=== PATIENT | male | born 1960 | race Asian ===

== ENCOUNTER 2023-02-05 19:44 | Inpatient (IN) | payer OTHER ==
[2023-02-05 21:12] LABS: BASO % 0.2 % (0-2.0); EOS % 0.1 % (0-4.5); HEMOGLOBIN 15.7 GM/dL (11.7-16.9); LYMPH % 9.2 % (8-40); MCHC 33.5 g/dl (32.0-35.9); MEAN CELL VOLUME 89.6 fl (80-96); MEAN PLT VOLUME 7.2 fl (7.5-11.1); MONO % 8.4 % (3.8-10.2); NEUT % 82.1 % (42.8-82.8); PLATELET COUNT 233 10^3/uL (134-434); RBC 5.24 M/mm3 (4.00-5.60); RDW 13.2 % (11.9-15.9)
[2023-02-05 21:22] LABS: INR 1.07 (0.83-1.09); PROTHROMBIN TIME (PATIENT) 12.4 SEC (9.7-13.0)
[2023-02-05 21:24] LABS: ACTIVATED PTT 26.7 SECONDS (25.2-36.5)
[2023-02-05 21:41] LABS: POTASSIUM 4.5 mmol/L (3.5-5.1)
[2023-02-05 21:43] LABS: CALCIUM 8.7 mg/dL (8.5-10.1)
[2023-02-05 21:44] LABS: ALBUMIN 3.3 g/dl (3.4-5.0); BLOOD UREA NITROGEN 33.3 mg/dL (7-18)
[2023-02-05 21:47] LABS: CREATININE 1.7 mg/dL (0.55-1.3)
[2023-02-05 21:48] LABS: BILIRUBIN,TOTAL 1.4 mg/dL (0.2-1)
[2023-02-05 21:49] LABS: TOT PROT 6.6 g/dl (6.4-8.2)
[2023-02-05 23:17] LABS: ERYTHROCYTE SEDIMENTATION RATE 7 mm/hr (0-20)
[2023-02-06 03:06] LABS: EPI CELLS 10 /uL (0-25.1); HYALINE CASTS 128 /uL (0-3.1); URINE APPEARANCE CLOUDY; URINE BACTERIA 15 /uL (0-1359); URINE BILIRUBIN 1+ (NEGATIVE); URINE COLOR DK YELLOW; URINE GLUCOSE (UA) NEGATIVE (NEGATIVE); URINE KETONE TRACE (NEGATIVE); URINE LEUK ESTERASE 2+ (NEGATIVE); URINE NITRITE NEGATIVE (NEGATIVE); URINE PROTEIN TRACE (NEGATIVE); URINE WBC 824 /uL (0-25.8)
[2023-02-06 07:24] LABS: BASO % 0.3 % (0-2.0); EOS % 0.7 % (0-4.5); HEMATOCRIT 42.8 % (35.4-49); HEMOGLOBIN 14.9 GM/dL (11.7-16.9); LYMPH % 16.4 % (8-40); MCH 31.1 pg (25.7-33.7); MCHC 34.7 g/dl (32.0-35.9); MEAN CELL VOLUME 89.7 fl (80-96); MEAN PLT VOLUME 7.7 fl (7.5-11.1); MONO % 9.8 % (3.8-10.2); NEUT % 72.8 % (42.8-82.8); PLATELET COUNT 247 10^3/uL (134-434); RBC 4.78 M/mm3 (4.00-5.60); RDW 13.1 % (11.9-15.9); WHITE BLOOD COUNT 10.6 K/mm3 (4.0-10.0)
[2023-02-06 07:44] LABS: POTASSIUM 4.3 mmol/L (3.5-5.1)
[2023-02-06 07:49] LABS: CALCIUM 8.5 mg/dL (8.5-10.1)
[2023-02-06 07:50] LABS: ALBUMIN 3.2 g/dl (3.4-5.0); BLOOD UREA NITROGEN 37.6 mg/dL (7-18); MAGNESIUM 2.3 mg/dL (1.8-2.4)
[2023-02-06 07:53] LABS: CREATININE 1.2 mg/dL (0.55-1.3); PHOSPHOROUS 4.2 mg/dL (2.5-4.9)
[2023-02-06 07:55] LABS: BILIRUBIN,TOTAL 1.5 mg/dL (0.2-1); TOT PROT 6.3 g/dl (6.4-8.2)
[2023-02-06 08:57] LABS: HIV INTERPRETATION NEGATIVE (NEGATIVE)
[2023-02-06 09:17] LABS: RETICULOCYTES 1.13 % (0.5-1.5)
[2023-02-06] MEDS: ASPIRIN COATED 81 MG TABLET.EC PO SCH (10:56)
[2023-02-06] MEDS: ENOXAPARIN NA (PORCINE) 40 MG/0.4 ML DISP.SYRIN SQ SCH (10:57)
[2023-02-06] MEDS: CARVEDILOL 12.5 MG TABLET (FP) PO SCH ×2 (10:57→21:37)
[2023-02-06 11:22] VITALS: BMI 26.4
[2023-02-06] MEDS: predniSONE 20 MG TABLET (UD) PO SCH (14:59)
[2023-02-06] MEDS ORDERED: ACETAMINOPHEN 1000 MG/100 ML BAG IVPB ONE (20:00)
[2023-02-07 08:38] LABS: HEMOGLOBIN 14.5 GM/dL (11.7-16.9); MCH 30.8 pg (25.7-33.7); MCHC 34.6 g/dl (32.0-35.9); MEAN CELL VOLUME 89.1 fl (80-96); RBC 4.71 M/mm3 (4.00-5.60)
[2023-02-07 08:41] LABS: POTASSIUM 4.8 mmol/L (3.5-5.1)
[2023-02-07 08:43] LABS: ALBUMIN 3.2 g/dl (3.4-5.0); BLOOD UREA NITROGEN 33.5 mg/dL (7-18); CALCIUM 8.5 mg/dL (8.5-10.1)
[2023-02-07 08:47] LABS: MAGNESIUM 2.6 mg/dL (1.8-2.4); PHOSPHOROUS 3.7 mg/dL (2.5-4.9)
[2023-02-07 08:48] LABS: BILIRUBIN,TOTAL 1.3 mg/dL (0.2-1)
[2023-02-07 08:49] LABS: PLATELET COUNT 244 10^3/uL (134-434)
[2023-02-07 08:57] LABS: TOT PROT 6.8 g/dl (6.4-8.2)
[2023-02-07] MEDS: CARVEDILOL 12.5 MG TABLET (FP) PO SCH ×2 (10:12→23:02)
[2023-02-07] MEDS: predniSONE 20 MG TABLET (UD) PO SCH (10:13)
[2023-02-07] MEDS: ENOXAPARIN NA (PORCINE) 40 MG/0.4 ML DISP.SYRIN SQ SCH (10:13)
[2023-02-07] MEDS: ASPIRIN COATED 81 MG TABLET.EC PO SCH (10:13)
[2023-02-07] MEDS ORDERED: SODIUM CHLORIDE 1,000 ML IV SCH (14:15)
[2023-02-07] MEDS: methylPREDNISolone NA SUCC 40 MG/1 ML VIAL IVPUSH SCH (15:09)
[2023-02-08 09:32] LABS: HEMATOCRIT 41.1 % (35.4-49); HEMOGLOBIN 14.1 GM/dL (11.7-16.9); MCH 30.7 pg (25.7-33.7); MCHC 34.3 g/dl (32.0-35.9); MEAN CELL VOLUME 89.3 fl (80-96); MEAN PLT VOLUME 8.2 fl (7.5-11.1); PLATELET COUNT 255 10^3/uL (134-434); WHITE BLOOD COUNT 9.6 K/mm3 (4.0-10.0)
[2023-02-08] MEDS: PIPERACILLIN/TAZOB 3.375 GM 3.375 GM in DEXTROSE 5%-WATER - 50 ML IVPB SCH ×2 (10:46→17:54)
[2023-02-08] MEDS: methylPREDNISolone NA SUCC 40 MG/1 ML VIAL IVPUSH SCH (10:47)
[2023-02-08] MEDS: CARVEDILOL 12.5 MG TABLET (FP) PO SCH ×2 (10:47→21:53)
[2023-02-08] MEDS: ENOXAPARIN NA (PORCINE) 40 MG/0.4 ML DISP.SYRIN SQ SCH (10:47)
[2023-02-08 11:42] LABS: POTASSIUM 4.9 mmol/L (3.5-5.1)
[2023-02-08 12:08] LABS: ALBUMIN 3.1 g/dl (3.4-5.0)
[2023-02-08 12:09] LABS: CALCIUM 8.6 mg/dL (8.5-10.1)
[2023-02-08 12:10] LABS: MAGNESIUM 2.7 mg/dL (1.8-2.4)
[2023-02-08 12:13] LABS: CREATININE 1.2 mg/dL (0.55-1.3)
[2023-02-08 12:14] LABS: TOT PROT 6.6 g/dl (6.4-8.2)
[2023-02-08 12:15] LABS: PHOSPHOROUS 3.6 mg/dL (2.5-4.9)
[2023-02-08 12:16] LABS: BILIRUBIN,TOTAL 1.2 mg/dL (0.2-1)
[2023-02-08] MEDS: SODIUM CHLORIDE 1,000 ML IV SCH (17:55)
[2023-02-09] MEDS: PIPERACILLIN/TAZOB 3.375 GM 3.375 GM in DEXTROSE 5%-WATER - 50 ML IVPB SCH ×3 (01:30→19:01)
[2023-02-09] MEDS ORDERED: amLODIPine BESYLATE 5 MG TABLET (FP) PO ONE (05:44)
[2023-02-09] MEDS: SODIUM CHLORIDE 1,000 ML IV SCH (06:08)
[2023-02-09 09:10] LABS: HEMATOCRIT 39.2 % (35.4-49); HEMOGLOBIN 13.3 GM/dL (11.7-16.9); LYMPH % 11.5 % (8-40); MCH 30.8 pg (25.7-33.7); MCHC 33.9 g/dl (32.0-35.9); MEAN CELL VOLUME 90.7 fl (80-96); MEAN PLT VOLUME 7.8 fl (7.5-11.1); MONO % 16.8 % (3.8-10.2); NEUT % 71.7 % (42.8-82.8); PLATELET COUNT 226 10^3/uL (134-434); RBC 4.33 M/mm3 (4.00-5.60); RDW 12.7 % (11.9-15.9)
[2023-02-09 09:14] LABS: POTASSIUM 4.7 mmol/L (3.5-5.1)
[2023-02-09 09:19] LABS: CALCIUM 8.1 mg/dL (8.5-10.1)
[2023-02-09 09:20] LABS: ALBUMIN 2.9 g/dl (3.4-5.0); BLOOD UREA NITROGEN 24.8 mg/dL (7-18)
[2023-02-09 09:23] LABS: CREATININE 0.9 mg/dL (0.55-1.3)
[2023-02-09 09:25] LABS: BILIRUBIN,TOTAL 1.7 mg/dL (0.2-1); TOT PROT 6.3 g/dl (6.4-8.2)
[2023-02-09] MEDS: ENOXAPARIN NA (PORCINE) 40 MG/0.4 ML DISP.SYRIN SQ SCH (10:45)
[2023-02-09] MEDS: LOSARTAN POTASSIUM 50 MG TABLET PO SCH (10:45)
[2023-02-09] MEDS: methylPREDNISolone NA SUCC 40 MG/1 ML VIAL IVPUSH SCH (10:45)
[2023-02-09] MEDS: CARVEDILOL 12.5 MG TABLET (FP) PO SCH ×2 (10:45→21:58)
[2023-02-10] MEDS: PIPERACILLIN/TAZOB 3.375 GM 3.375 GM in DEXTROSE 5%-WATER - 50 ML IVPB SCH ×3 (01:18→17:09)
[2023-02-10] MEDS ORDERED: BENZOCAINE/MENTH/CETYLPYRD CL 1 EACH LOZENGE MM PRN (05:43)
[2023-02-10] MEDS ORDERED: guaiFENesin 200 MG/10 ML 10 ML UNIT-DOSE CUPS PO ONE (05:43)
[2023-02-10 07:27] VITALS: PULSE 78; RESP 18; TEMP 98.1
[2023-02-10 08:55] LABS: HEMOGLOBIN 11.8 GM/dL (11.7-16.9); MCH 30.8 pg (25.7-33.7); MCHC 33.8 g/dl (32.0-35.9); MEAN CELL VOLUME 91.1 fl (80-96); MEAN PLT VOLUME 7.8 fl (7.5-11.1); PLATELET COUNT 197 10^3/uL (134-434); RBC 3.85 M/mm3 (4.00-5.60); RDW 12.8 % (11.9-15.9); WHITE BLOOD COUNT 4.8 K/mm3 (4.0-10.0)
[2023-02-10] MEDS: ENOXAPARIN NA (PORCINE) 40 MG/0.4 ML DISP.SYRIN SQ SCH (09:04)
[2023-02-10] MEDS: CARVEDILOL 12.5 MG TABLET (FP) PO SCH (09:04)
[2023-02-10] MEDS: LOSARTAN POTASSIUM 50 MG TABLET PO SCH (09:04)
[2023-02-10] MEDS: methylPREDNISolone NA SUCC 40 MG/1 ML VIAL IVPUSH SCH (09:04)
[2023-02-10 09:11] LABS: POTASSIUM 4.2 mmol/L (3.5-5.1)
[2023-02-10 09:14] LABS: BLOOD UREA NITROGEN 22.1 mg/dL (7-18)
[2023-02-10 09:15] LABS: ALBUMIN 2.7 g/dl (3.4-5.0)
[2023-02-10 09:18] LABS: CREATININE 0.8 mg/dL (0.55-1.3)
[2023-02-10 09:19] LABS: BILIRUBIN,TOTAL 1.2 mg/dL (0.2-1); TOT PROT 5.8 g/dl (6.4-8.2)
[2023-02-10 13:51] VITALS: BP 168/74
[2023-02-12 20:07] LABS: ANTIGLOMERULAR BASEMENT MEN.AB <0.2 units (0.0-0.9)
[2023-02-13 15:09] LABS: ATYPICAL pANCA <1:20 titer (Neg:<1:20); C-ANCA <1:20 titer (Neg:<1:20)
== END 2023-02-10 18:30 | disposition home or self-care (01) | DRG 346 ==
LOC: JER 19:44 → JERBED 22:27 → J5S 02-06 08:32
PROVIDERS: ADMIT Internal Medicine; ATTEND Internal Medicine
DX: M31.0 Hypersensitivity angiitis (principal); R18.8 Other ascites; E78.5 Hyperlipidemia, unspecified; I10 Essential (primary) hypertension; I77.6 Arteritis, unspecified; K52.9 Noninfective gastroenteritis and colitis, unspecified; M60.9 Myositis, unspecified; N17.9 Acute kidney failure, unspecified; Z86.73 Personal history of transient ischemic attack (TIA), and cerebral infarction without residual deficits
CPT/HCPCS: 0241U-QW; 36415; 71045-TC-FY; 74177-TC; 76700-TC; 80053; 81003; 82085; 82248; 82272; 82550; 82553; 82570; 82728; 82784; 83010; 83516; 83520; 83540; 83550; 83615; 83735; 84100; 84300; 84484; 85025; 85027; 85045; 85610; 85651; 85730; 86038; 86140; 86160; 86162; 86225; 86235; 86256; 86704; 86709; 86780; 86803; 87340; 87389; 87517; 93005; 93010; 99285-25; Q9967